=== PATIENT | female | born 1990 ===

== ENCOUNTER 2017-01-28 21:49 | Emergency (ER) | payer OTHER ==
[2017-01-28 21:57] VITALS: BP 156/89; PULSE 75; RESP 18; TEMP 97.9; O2SAT 98
[2017-01-28 22:36] LABS: ALB/GLOB RATIO 1.3 (1.0-2.1); ALKALINE PHOSPHATASE 83 U/L (38-126); ALT/SGPT 32 U/L (9-52); AST/SGOT 27 U/L (14-36); BILIRUBIN,TOTAL 0.4 mg/dl (0.2-1.3); BLOOD UREA NITROGEN 13 mg/dl (7-17); CALCIUM 9.4 mg/dL (8.4-10.2); CARBON DIOXIDE 27 mmol/L (22-30); CHLORIDE 104 mmol/L (98-107); GFR AFRICAN-AMERICAN > 60; GLUCOSE,RANDOM 101 mg/dL (65-105); POTASSIUM 3.9 MMOL/L (3.6-5.0); SODIUM 141 mmol/l (132-148); TOTAL PROTEIN 7.8 G/DL (6.3-8.2)
[2017-01-28 22:37] LABS: BASO % 0.4 % (0.0-2.0); EOS # 0.1 K/uL (0.0-0.7); EOS % 1.8 % (0.0-4.0); LYMPH # 2.4 K/uL (1.0-4.3); LYMPH % 60.1 % (20.0-40.0); MEAN CELL VOLUME 92.2 fl (81.0-99.0); MEAN CORPUSCULAR HEMOGLOBIN 30.5 pg (27.0-31.0); MEAN CORPUSCULAR HGB CONC 33.1 g/dL (33.0-37.0); MEAN PLATELET VOLUME 8.1 fl (7.2-11.7); MONO # 0.4 K/uL (0.0-0.8); MONO % 9.9 % (0.0-10.0); NEUT # 1.1 K/uL (1.8-7.0); NEUT % 27.8 % (50.0-75.0); RED CELL DISTRIBUTION WIDTH 13.5 % (11.5-14.5)
[2017-01-28 22:45] LABS: URINE BACTERIA RARE (<OCC); URINE BILIRUBIN NEGATIVE (NEGATIVE); URINE BLOOD NEGATIVE (NEGATIVE); URINE COLOR YELLOW (YELLOW); URINE GLUCOSE (UA) NEG (Normal); URINE KETONE NEGATIVE (NEGATIVE); URINE LEUKOCYTE ESTERASE NEG Leu/uL (Negative); URINE PROTEIN NEGATIVE (NEGATIVE); URINE UROBILINOGEN 0.2-1.0 mg/dL (0.2-1.0); WBC URINE 2 /hpf (0-5)
--- NOTE | 2017-01-28 22:45 | ED PDOC ---
HPI: General Adult Time Seen by Provider: 01/28/17 22:01 Chief Complaint (Nursing): Abdominal Pain Chief Complaint (Provider): Left-Sided Flank Pain History Per: Patient History/Exam Limitations: no limitations Onset/Duration Of Symptoms: Days (x3) Current Symptoms Are (Timing): Still Present Additional Complaint(s): Cristiana Fairchild is a 27 year old - female that presents to the ED with a chief complaint of intermittent sharp, stabbing left flank pain that she has been experiencing for the past three days. Patient states that her pain was worst three days ago, and has experienced burning dysuria and fever. Past Medical History Reviewed: Historical Data, Nursing Documentation, Vital Signs Vital Signs: Last Vital Signs Temp 97.9 F 01/28/17 21:52 Pulse 75 01/28/17 21:52 Resp 18 01/28/17 21:52 BP 156/89 H 01/28/17 21:52 Pulse Ox 98 01/28/17 23:30 - Medical History PMH: No Chronic Diseases - Family History Family History: States: Unknown Family Hx - Social History Current smoker - smoking cessation education provided: No Alcohol: None Drugs: Denies - Home Medications Home Medications: Ambulatory Orders Medication Instructions Recorded Ciprofloxacin [Cipro] 500 mg PO Q12 #14 tab 01/28/17 Dicyclomine [Bentyl] 20 mg PO Q12 PRN #20 tab 01/28/17 - Allergies Allergies/Adverse Reactions: Allergies Allergy/AdvReac Type Severity Reaction Status Date / Time No Known Allergies Allergy Verified 01/28/17 21:52 Review of Systems Constitutional: Positive for: Fever Genitourinary Female: Positive for: Dysuria (burning) Musculoskeletal: Positive for: Back Pain (left flank pain) Physical Exam - Reviewed Nursing Documentation Reviewed: Yes Vital Signs Reviewed: Yes - Physical Exam Appears: Positive for: Non-toxic, No Acute Distress Head Exam: Positive for: ATRAUMATIC, NORMOCEPHALIC Skin: Positive for: Normal Color, Warm Gastrointestinal/Abdominal: Positive for: Tenderness (LLQ tenderness). Negative for: Normal Exam Back: Positive for: L CVA Tenderness. Negative for: Normal Inspection Neurologic/Psych: Positive for: Alert, Oriented. Negative for: Motor/Sensory Deficits - Laboratory Results Result Diagrams: 01/28/17 22:24 01/28/17 22:25 - ECG O2 Sat by Pulse Oximetry: 98 (RA) Pulse Ox Interpretation: Normal Medical Decision Making Medical Decision Making: Impression: 27 year old female with left flank pain, abdominal pain, and dysuria Plan: * CT Scan A/P without PO or IV contrast * US Transvaginal * Urine dip * Urine * Urine culture * Urinalysis * Toradol 1 mg IV * Reevaluation 2304 Abd/Pelvis CT FINDINGS: Lower thorax: No acute findings. ABDOMEN: Liver: Unremarkable. Gallbladder and bile ducts: No calcified stones. No ductal dilation. Pancreas: Unremarkable. No ductal dilation. Spleen: No splenomegaly. Adrenals: No mass. Kidneys and ureters: Faint punctate calculus vs artifact within LEFT kidney. No hydronephrosis. Stomach and bowel: No definite mural thickening. No obstruction. Appendix: Normal caliber. No definite inflammation. PELVIS: Bladder: Unremarkable. No stones. Reproductive: Unremarkable as visualized. ABDOMEN and PELVIS: Intraperitoneal space: No significant fluid collection. No free air. Bones/joints: No acute fracture. Soft tissues: Pfannenstiel scar. Tiny umbilical hernia containing fat. Vasculature: Unremarkable. No aneurysm. Lymph nodes: No pathologically enlarged lymph nodes. IMPRESSION: 1. No CT evidence of obstructing urolithiasis. 2. Incidental/non-acute findings are described above. 2320 Transvaginal US FINDINGS: Uterus/cervix: Uterus measures 6.4 x 3.8 x 4.8 cm in size. No myometrial mass. Endometrium: 0.4 cm in thickness. Trace fluid within endometrial canal. Right ovary: 1.8 x 2.0 x 2.3 cm in size. No mass. Small follicles. Normal flow. Left ovary: 1.6 x 1.4 x 1.3 cm in size. No mass. Small follicles. Normal flow. Free fluid: No significant free fluid. Bladder: Empty bladder which cannot be evaluated with this probe. IMPRESSION: 1. No acute findings. 2. Non-acute findings are described above. Dispo 2320 -Labs show no significant abnormalities. Patient was advised of discharge plan. Diagnosis is abdominal pain due to UTI, condition has improved and will be treated for UTI. Patient has been referred to [facility]. Scribe Attestation: Documented by Mary Bustillo & Shade Fenton, acting as a scribe for Keo Fajardo MD. Provider Scribe Attestation: All medical record entries made by the Scribe were at my direction and personally dictated by me. I have reviewed the chart and agree that the record accurately reflects my personal performance of the history, physical exam, medical decision making, and the department course for this patient. I have also personally directed, reviewed, and agree with the discharge instructions and disposition. Disposition - Clinical Impression Clinical Impression: Abdominal pain - Patient ED Disposition Is Patient to be Admitted: No Counseled Patient/Family Regarding: Studies Performed, Diagnosis, Need For Followup, Rx Given - Disposition [facility]errals: [facility] [Outside] Disposition: Routine/Home Disposition Time: 23:00 Condition: STABLE Prescriptions: Ciprofloxacin [Cipro] 500 mg PO Q12 #14 tab Dicyclomine [Bentyl] 20 mg PO Q12 PRN #20 tab PRN Reason: abdominal pain Instructions: Abdominal Pain (ED) Forms: [email or web address] (Swiss) Print Language: ARMENIAN
[2017-01-28 22:46] LABS: RBC URINE 3 /hpf (0-3)
--- NOTE | 2017-01-28 23:04 | CT ---
EXAM: CT Abdomen and Pelvis Without Intravenous Contrast CLINICAL HISTORY: 27 years old, female; Pain; Abdominal pain; Flank; Left; Prior surgery; Surgery date: 6+ months; Surgery type: 3 c-sections; Additional info: Renal colic TECHNIQUE: Axial computed tomography images of the abdomen and pelvis without intravenous contrast. All CT scans at this facility use one or more dose reduction techniques, viz.: automated exposure control; ma/kV adjustment per patient size (including targeted exams where dose is matched to indication; i.e. head); or iterative reconstruction technique. Coronal and sagittal reformatted images were created and reviewed. COMPARISON: No relevant prior studies available. FINDINGS: Lower thorax: No acute findings. ABDOMEN: Liver: Unremarkable. Gallbladder and bile ducts: No calcified stones. No ductal dilation. Pancreas: Unremarkable. No ductal dilation. Spleen: No splenomegaly. Adrenals: No mass. Kidneys and ureters: Faint punctate calculus vs artifact within LEFT kidney. No hydronephrosis. Stomach and bowel: No definite mural thickening. No obstruction. Appendix: Normal caliber. No definite inflammation. PELVIS: Bladder: Unremarkable. No stones. Reproductive: Unremarkable as visualized. ABDOMEN and PELVIS: Intraperitoneal space: No significant fluid collection. No free air. Bones/joints: No acute fracture. Soft tissues: Pfannenstiel scar. Tiny umbilical hernia containing fat. Vasculature: Unremarkable. No aneurysm. Lymph nodes: No pathologically enlarged lymph nodes. IMPRESSION: 1. No CT evidence of obstructing urolithiasis. 2. Incidental/non-acute findings are described above.
--- NOTE | 2017-01-28 23:20 | US ---
EXAM: US Pelvis, Transvaginal CLINICAL HISTORY: 27 years old, female; Pain; Pelvic pain; Additional info: Left abd pain TECHNIQUE: Real-time transvaginal pelvic ultrasound (complete) with image documentation. Transvaginal imaging was used for better evaluation of the endometrium and adnexa. COMPARISON: No relevant prior studies available. FINDINGS: Uterus/cervix: Uterus measures 6.4 x 3.8 x 4.8 cm in size. No myometrial mass. Endometrium: 0.4 cm in thickness. Trace fluid within endometrial canal. Right ovary: 1.8 x 2.0 x 2.3 cm in size. No mass. Small follicles. Normal flow. Left ovary: 1.6 x 1.4 x 1.3 cm in size. No mass. Small follicles. Normal flow. Free fluid: No significant free fluid. Bladder: Empty bladder which cannot be evaluated with this probe. IMPRESSION: 1.No acute findings. 2.Non-acute findings are described above.
== END 2017-01-29 00:08 | disposition home or self-care (01) ==
LOC: H.ER 21:49
DX: N39.0 Urinary tract infection, site not specified (principal); R10.9 Unspecified abdominal pain
CPT/HCPCS: 74176; 76830; 80053; 81003; 81025; 85025; 87086; 99283; J1885

== ENCOUNTER 2017-10-27 19:54 | Emergency (ER) | payer SELFPAY ==
[2017-10-27 20:01] VITALS: O2SAT 100
--- NOTE | 2017-10-27 20:14 | ED PDOC ---
HPI: Abdomen Time Seen by Provider: 10/27/17 20:14 Chief Complaint (Nursing): Abdominal Pain Chief Complaint (Provider): abd pain History Per: Patient Additional Complaint(s): 27-year-old female presents with left-side lower abdominal pain associated with nausea for 3 days with no fever or chills. She also complains of mild dysuria but denies vaginal bleeding or discharge. Patient states she has history of constipation for several years and typically she has bowel movements every 2-3 days. Patient states her last bowel movement was on Wednesday. Patient denies any rectal pain or rectal bleeding. No recent dietary changes. Patient takes MiraLAX daily but still has constipation. PMD: [facility] Past Medical History Reviewed: Historical Data Vital Signs: Last Vital Signs Temp 98.0 F 10/27/17 19:58 Pulse 88 10/27/17 19:58 Resp 16 10/27/17 19:58 BP 123/85 10/27/17 19:58 Pulse Ox 100 10/27/17 20:40 - Medical History PMH: No Chronic Diseases - Surgical History Surgical History: (x 3) - Family History Family History: States: No Known Family Hx - Living Arrangements Living Arrangements: With Family - Social History Current smoker - smoking cessation education provided: No Alcohol: None Drugs: Denies - Home Medications Home Medications: Ambulatory Orders Medication Instructions Recorded Ciprofloxacin [Cipro] 500 mg PO Q12 #14 tab 01/28/17 Dicyclomine [Bentyl] 20 mg PO Q12 PRN #20 tab 01/28/17 Naproxen [Naprosyn] 500 mg PO BID #20 tab 10/27/17 - Allergies Allergies/Adverse Reactions: Allergies Allergy/AdvReac Type Severity Reaction Status Date / Time No Known Allergies Allergy Verified 10/27/17 19:58 Review of Systems ROS Statement: Except As Marked, All Systems Reviewed And Found Negative Constitutional: Negative for: Fever, Chills Cardiovascular: Negative for: Chest Pain Respiratory: Negative for: Cough Gastrointestinal: Positive for: Nausea, Abdominal Pain, Constipation. Negative for: Vomiting, Diarrhea, Melena, Hematochezia, Hematemesis, Rectal Pain Genitourinary Female: Positive for: Dysuria. Negative for: Frequency, Incontinence, Hematuria, Vaginal Discharge, Vaginal Bleeding Physical Exam - Reviewed Nursing Documentation Reviewed: Yes Vital Signs Reviewed: Yes - Physical Exam Appears: Positive for: Well, Non-toxic, No Acute Distress Skin: Positive for: Normal Color. Negative for: Rash Eye Exam: Positive for: Normal appearance Cardiovascular/Chest: Positive for: Regular Rate, Rhythm Respiratory: Positive for: Normal Breath Sounds. Negative for: Wheezing, Respiratory Distress Gastrointestinal/Abdominal: Positive for: Tenderness (LLQ with mild distension, no rebound or guarding, normoactive bowel sounds in all 4 quadrants) Back: Negative for: L CVA Tenderness, R CVA Tenderness Extremity: Positive for: Normal ROM Neurologic/Psych: Positive for: Alert, Oriented - Laboratory Results Result Diagrams: 10/27/17 20:45 10/27/17 20:45 Urine POC: Negative Urine dip results: Positive for: Ketones. Negative for: Leukocyte Esterase, Blood, Nitrate, Glucose, Bilirubin, Protein - ECG O2 Sat by Pulse Oximetry: 100 Pulse Ox Interpretation: Normal - Other Rad CT abd and pelvis with IV contrast X-Ray: Read By Radiologist X-Ray Interpretation: see below Medical Decision Making Medical Decision Makin27 year old with abd pain Plan: Urine dip Urine test CBC CMP Lipase CT abd and pelvis with IV contrast IVF IV zofran 4 mg IV toradol [address]: FINDINGS: Lung bases: Heart size is normal. There is atelectasis at the lung bases ABDOMEN: Liver: There is fatty infiltration of the liver. Gallbladder and bile ducts: unremarkable Pancreas: unremarkable Spleen: unremarkable Adrenals: unremarkable Kidneys and ureters: unremarkable Stomach and bowel: Stomach is incompletely distended. Rotation is normal. There is fluid and air throughout the small bowel. There is no obstruction. Ileocecal region is unremarkable. Appendix and terminal ileum are unremarkable. There is moderate stool in the colon. PELVIS: Appendix: See stomach and bowel Bladder: unremarkable Reproductive: Uterus and right adnexal structures are unremarkable. There is prominence of the left adnexa. There are multiple pelvic varices on the left. ABDOMEN and PELVIS: Intraperitoneal space: There is a small amount of fluid in the pelvis.There is no free air. Bones/joints: There are no acute osseous abnormalities. Soft tissues: There is a small fat containing umbilical hernia. There is scarring in the lower abdominal wall, unchanged Vasculature: There are pelvic varices on the left. Aorta and inferior vena cava are unremarkable. Lymph nodes: There is shotty adenopathy. IMPRESSION: Free fluid in the cul-de-sac, physiologic versus recent cyst rupture ; mild prominence left adnexa; left adnexal varices; no acute solid visceral or bowel abnormality Additional nonemergent findings as described above. Patient is aware diagnostic testing results, all questions answered. She reports improvement of pain after meds given. [facility] and given prescription for Naprosyn. Disposition - Clinical Impression Clinical Impression: Constipation, Adnexal pain - Patient ED Disposition Is Patient to be Admitted: No Counseled Patient/Family Regarding: Studies Performed, Diagnosis, Need For Followup, Rx Given - Disposition [facility] Disposition: Routine/Home Disposition Time: 22:49 Condition: STABLE Additional Instructions: Take prescription meds as directed as needed for pain. Take [id number] rectal suppositories as needed for constipation. Follow-up with [facility] in 2-3 days. Prescriptions: Naproxen [Naprosyn] 500 mg PO BID #20 tab Instructions: Constipation in Adults, Acute Pelvic Pain (DC) Forms: [employer] ([place]) Results - Lab Results Lab Results: 10/27/17 10/27/17 20:45 20:45 WBC 3.9 L RBC 4.19 Hgb 13.1 Hct 38.9 MCV 92.8 MCH 31.2 H MCHC 33.6 RDW 13.5 Plt Count 198 MPV 8.0 Neut % (Auto) 28.9 L Lymph % (Auto) 59.5 H [place] % (Auto) 9.8 Eos % (Auto) 1.3 Baso % (Auto) 0.5 Neut # (Auto) 1.1 L Lymph # (Auto) 2.3 [place] # (Auto) 0.4 Eos # (Auto) 0.1 Baso # (Auto) 0.0 Sodium 141 Potassium 3.7 Chloride 103 Carbon Dioxide 26 Anion Gap 16 BUN 12 Creatinine 0.5 L Est GFR ( Amer) > 60 Est GFR (Non-Af Amer) > 60 Random Glucose 87 Calcium 9.8 Total Bilirubin 0.6 AST 25 ALT 33 Alkaline Phosphatase 62 Total Protein 7.9 Albumin 4.3 Globulin 3.6 Albumin/Globulin Ratio 1.2 Lipase 54
[2017-10-27] MEDS ORDERED: Sodium Chloride 0.9% 1,000 ML IV STA (20:27)
[2017-10-27 20:55] LABS: BASO % 0.5 % (0.0-2.0); EOS # 0.1 K/uL (0.0-0.7); EOS % 1.3 % (0.0-4.0); HEMOGLOBIN 13.1 g/dL (12.0-16.0); LYMPH # 2.3 K/uL (1.0-4.3); LYMPH % 59.5 % (20.0-40.0); MEAN CELL VOLUME 92.8 fl (81.0-99.0); MEAN CORPUSCULAR HEMOGLOBIN 31.2 pg (27.0-31.0); MEAN CORPUSCULAR HGB CONC 33.6 g/dL (33.0-37.0); MONO # 0.4 K/uL (0.0-0.8); MONO % 9.8 % (0.0-10.0); NEUT # 1.1 K/uL (1.8-7.0); NEUT % 28.9 % (50.0-75.0); NRBC % 0.1 % (0.0-0.0); RBC 4.19 Mil/uL (3.80-5.20); RED CELL DISTRIBUTION WIDTH 13.5 % (11.5-14.5); WHITE BLOOD COUNT 3.9 K/uL (4.8-10.8)
[2017-10-27] MEDS ORDERED: Iohexol 300 100 ML IJ ONE (20:56)
[2017-10-27] MEDS ORDERED: Sodium Chloride 0.9% 50 ML IV ONE (20:57)
[2017-10-27 21:03] LABS: ALB/GLOB RATIO 1.2 (1.0-2.1); ALBUMIN 4.3 g/dL (3.5-5.0); ALT/SGPT 33 U/L (9-52); AST/SGOT 25 U/L (14-36); BLOOD UREA NITROGEN 12 mg/dl (7-17); CALCIUM 9.8 mg/dL (8.4-10.2); GFR AFRICAN-AMERICAN > 60; GFR NON-AFRICAN AMERICAN > 60; LIPASE 54 U/L (23-300)
--- NOTE | 2017-10-27 22:37 | CT ---
EXAM: CT Abdomen and Pelvis With Intravenous Contrast EXAM DATE/TIME: 10/27/2017 8:27 PM CLINICAL HISTORY: 27 years old, female; Pain; Abdominal pain; Localized; Left lower quadrant (llq); Prior surgery; Surgery date: 6+ months; Surgery type: C-sections -x3; Additional info: Llq pain, nausea TECHNIQUE: Axial computed tomography images of the abdomen and pelvis with intravenous contrast. All CT scans at this facility use one or more dose reduction techniques, viz.: automated exposure control; ma/kV adjustment per patient size (including targeted exams where dose is matched to indication; i.e. head); or iterative reconstruction technique. Coronal and sagittal reformatted images were created and reviewed. CONTRAST: 90 mL of [id number] administered intravenously. COMPARISON: CT - ABD PELVIS W/O PO OR IV CONT 2017-01-28 22:35 FINDINGS: Lung bases: Heart size is normal. There is atelectasis at the lung bases ABDOMEN: Liver: There is fatty infiltration of the liver. Gallbladder and bile ducts: unremarkable Pancreas: unremarkable Spleen: unremarkable Adrenals: unremarkable Kidneys and ureters: unremarkable Stomach and bowel: Stomach is incompletely distended. Rotation is normal. There is fluid and air throughout the small bowel. There is no obstruction. Ileocecal region is unremarkable. Appendix and terminal ileum are unremarkable. There is moderate stool in the colon. PELVIS: Appendix: See stomach and bowel Bladder: unremarkable Reproductive: Uterus and right adnexal structures are unremarkable. There is prominence of the left adnexa. There are multiple pelvic varices on the left. ABDOMEN and PELVIS: Intraperitoneal space: There is a small amount of fluid in the pelvis.There is no free air. Bones/joints: There are no acute osseous abnormalities. Soft tissues: There is a small fat containing umbilical hernia. There is scarring in the lower abdominal wall, unchanged Vasculature: There are pelvic varices on the left. Aorta and inferior vena cava are unremarkable. Lymph nodes: There is shotty adenopathy. IMPRESSION: Free fluid in the cul-de-sac, physiologic versus recent cyst rupture; mild prominence left adnexa; left adnexal varices; no acute solid visceral or bowel abnormality Additional nonemergent findings as described above.
[2017-10-27 22:59] VITALS: BP 120/77; PULSE 71; RESP 18; TEMP 98.8
== END 2017-10-27 23:04 | disposition home or self-care (01) ==
LOC: H.ER 19:54
DX: K59.00 Constipation, unspecified (principal); R10.2 Pelvic and perineal pain
CPT/HCPCS: 74177; 80053; 81025; 83690; 85025; 96360; 99284; J1885; J2405; J7030; Q9967